=== PATIENT | female | born 1950 | race Caucasian/White ===

== ENCOUNTER → 2017-09-29 | Outpatient (CLI) | payer OTHER ==
[~2017-09-29] MED LIST: ALBUAER2 INH; ANAS1TAB19 PO; ATOR-14 PO; CALC200T PO; CALC500T72 PO; CHOL100010 PO; CLC100X PO; ERGO1TAB10 PO; HYDR25TA5 PO; LORA-741 PO; MELO7.5T6 PO; NXM/40 PO; POTA20TA16 PO; TIOTCAP INH; VENL150C56 PO; VENL75TA4 PO; VSC/5 PO
== END | disposition home or self-care (01) ==
LOC: C.LABSPEC 17:10 → C.PATHSPEC 17:12
PROVIDERS: ATTEND Urology
DX: N39.46 Mixed incontinence (principal); N39.0 Urinary tract infection, site not specified